=== PATIENT | male | born 1945 | race Caucasian/White ===

== ENCOUNTER 2017-03-25 14:47 | Emergency (ER) | payer MEDICARE, OTHER ==
[~2017-03-25] VITALS: Ht 193 cm; Wt 110.0 kg
[~2017-03-25 14:47] MED LIST: AMLO5TAB22 PO; CELE200C PO; CIAL5TAB PO; LISI-360 PO; MECL25 PO; PRAV20TA PO; PROS5TAB2 PO; ST JTAB PO
[2017-03-25 14:54] VITALS: BP 138/70; PULSE 89; RESP 16; TEMP 99.1; O2SAT 96
[2017-03-25] MEDS ORDERED: CIAL5TAB PO (15:18)
[2017-03-25] MEDS ORDERED: PRAD150C PO (15:18)
[2017-03-25] MEDS ORDERED: PROS5TAB PO (15:18)
[2017-03-25] MEDS ORDERED: CELE200C PO (15:18)
[2017-03-25] MEDS ORDERED: AMLO5TAB2 PO (15:18)
[2017-03-25] MEDS ORDERED: LISI10TA3 PO (15:18)
[2017-03-25] MEDS ORDERED: TETANUS/DIPHTHERIA TOXOID ADULT 0.5 ML VIAL IM ONE (15:30)
--- NOTE | 2017-03-25 16:23 | PD ---
HPI Chief Complaint: Laceration/Skin Injury Time Seen by Provider: 15:02 Travel History International Travel<30 days: No Contact w/Intl Traveler<30days: No Traveled to known affect area: No History of Present Illness HPI Patient comes in complaining of a abrasion to his left distal forearm that occurred after he accidentally ran into a concrete retention wall. Patient denies any pain. Patient's only concern is that won't stop bleeding and he is on blood thinner. Patient states he cleaned it prior coming to the emergency department and placed a dressing but continues to bleed. Reports tetanus shot is not up-to-date. Denies anything making this better or worse. Denies any sensory loss consciousness. PFSH Past Medical History Arthritis: Yes Asthma: Yes Cancer: No Cardiovascular Problems: Yes (A-FIB,ABLATION) High Cholesterol: Yes Chest Pain: Yes Diabetes: No Diminished Hearing: No Deep Vein Thrombosis: Yes Endocrine: No Gastrointestinal Disorders: No Genitourinary: No Hypertension: Yes Musculoskeletal: Yes (RIGHT SHOULDER ) Psychiatric: No Reproductive: No Respiratory: Yes Immunizations Current: Yes (shingles) Triglycerides - High: Yes Tetanus Vaccination: < 5 Years Past Surgical History Hysterectomy: Yes (htn on meds) Social History Alcohol Use: Yes ("OCCASIONALLY") Tobacco Use: No Substance Use: No Allergies-Medications (Allergen,Severity, Reaction): Coded Allergies: [id number] Reductase Inhibitor (Verified Allergy, Intermediate, BODY ACHES, JOINT PAIN, 03/25/17) Reported Meds & Prescriptions Reported Meds & Active Scripts Active Reported Cialis (Tadalafil) 5 Mg Tab 5 Mg PO DAILY Do not exceed 1 dose/day. Lisinopril 10 Mg Tab 10 Mg PO DAILY Proscar (Finasteride) 5 Mg Tab 5 Mg PO DAILY Do not crush. Celebrex (Celecoxib) 200 Mg Cap 200 Mg PO DAILY Amlodipine (Amlodipine Besylate) 5 Mg Tab 5 Mg PO DAILY Pradaxa (Dabigatran) 150 Mg Cap 150 Mg PO BID Review of Systems Except as stated in HPI: all other systems reviewed are Neg Physical Exam Narrative GENERAL: Well-developed, overly nourished, in no acute distress, and non-ill appearing. SKIN: Patient is a superficial abrasion noted over the distal left forearm dorsal aspect that is actively bleeding at a slow rate. Neurovascular intact distally. Full range of motion distally. Crepitus. HEAD: Atraumatic. Normocephalic. EYES: Pupils equal and round. EOMI. No scleral icterus. No injection or drainage. ENT: No nasal bleeding or discharge. Mucous membranes pink and moist. NECK: Trachea midline. Supple. No nuclear rigidity. RESPIRATORY: No accessory muscle use. No respiratory distress. MUSCULOSKELETAL: No obvious deformities. No clubbing. No cyanosis. No edema. Full range of motion. NEUROLOGICAL: Awake and alert. No obvious cranial nerve deficits. Motor grossly within normal limits. Normal speech. PSYCHIATRIC: Appropriate mood and affect; insight and judgment normal. Data Data Last Documented VS Vital Signs Date Time Temp Pulse Resp B/P (MAP) Pulse Ox O2 Delivery O2 Flow Rate FiO2 03/25/17 14:54 99.1 89 16 138/70 (92) 96 Orders Orders Tetanus/Diphtheria Tox Adult (Tetanus/Di (03/25/17 15:30) Ed Discharge Order (03/25/17 15:58) MDM Medical Decision Making Medical Screen Exam Complete: Yes Emergency Medical Condition: Yes Differential Diagnosis Laceration, abrasion, bleeding Narrative Course Patient in no obvious distress upon re-evaluation. Any questions/concerns in reference to patient diagnosis/condition discussed and clarified prior to patient's discharge. Reinforced sheer importance of close follow up with patient 's primary physician or primary care clinic. Instructed patient to return to ED immediately, if symptoms return/worsen. Patient showed understanding of above instructions. Further instructions and recommendations were detailed in discharge paperwork. Patient ambulated without difficulty out of ED at discharge. Procedures Procedure Narrative Verbal consent was obtained. Wound was cleaned and irrigated using copious amounts of normal saline. Pressure bandage was applied. Patient was monitored in the ER. Bandage was removed patient in telemetry to have bleeding. Therefore powdered wound seal was applied. Patient was monitored bleeding was stopped. Patient tolerated procedure well. There is no complications. Diagnosis Primary Impression: Bleeding from wound Patient Instructions: Abrasion (ED), General Instructions Additional Instructions: Follow-up with your primary care physician in 3-5 days for reevaluation. Keep wound dry and clean as possible using soap and water. Use Neosporin to promote healing. Return to the emergency department if symptoms get worse. Disposition: 01 DISCHARGE HOME Condition: Stable Jamshid Perera Mar 25, 2017 16:23
== END 2017-03-25 16:29 | disposition home or self-care (01) ==
LOC: PHEFT 14:47
DX: S50.812A Abrasion of left forearm, initial encounter (principal); W22.01XA Walked into wall, initial encounter; Z23 Encounter for immunization
CPT/HCPCS: 90471; 90714